=== PATIENT | female | born 2000 | race Caucasian/White ===

== ENCOUNTER 2022-08-30 20:22 | Emergency (ER) | payer OTHER, BC ==
[2022-08-30] MEDS ORDERED: Ondansetron PF 4 MG/2 ML Vial ONE (20:40)
[2022-08-30] MEDS ORDERED: Morphine 4 MG/ML VIAL ONE (20:40)
[2022-08-30] MEDS ORDERED: Boostrix 0.5 ML (Tdap) VIAL (>/=7 yrs of age) ONE (22:39)
== END 2022-08-30 22:50 | disposition home or self-care (01) ==
LOC: ERS 20:22
DX: S40.022A Contusion of left upper arm, initial encounter (principal); S80.211A Abrasion, right knee, initial encounter; V23.09XA Other motorcycle driver injured in collision with car, pick-up truck or van in nontraffic accident, initial encounter; Z23 Encounter for immunization
CPT/HCPCS: 72170; 90471; 90715; 96374; 96375; J2270; J2405

== ENCOUNTER 2022-09-14 14:20 | Outpatient (CLI) | payer BC | END 2022-09-14 14:21 | disposition home or self-care (01) | LOC: SCSMRI 14:20 | PROVIDERS: ATTEND Orthopaedic Surgery | DX: S63.502A Unspecified sprain of left wrist, initial encounter (principal); M94.8X8 Other specified disorders of cartilage, other site ==

== ENCOUNTER 2023-01-06 07:35 | Outpatient (CLI) | payer BC ==
[2023-01-06] MEDS ORDERED: Magnevist 469MG/ML 20 ML VIAL ONE (08:27)
== END 2023-01-06 07:36 | disposition home or self-care (01) ==
LOC: BICMRI 07:35
PROVIDERS: ATTEND Family Medicine
DX: M54.50 Low back pain, unspecified (principal); M51.36 Other intervertebral disc degeneration, lumbar region
CPT/HCPCS: 72158; A9579

== ENCOUNTER 2023-03-31 16:34 | Emergency (ER) | payer BC ==
[~2023-03-31 16:34] MED LIST: Iopamidol-370 76% 500 ML MDV (1 ML CHARGE) ONE
[2023-03-31] MEDS ORDERED: Morphine 4 MG/ML VIAL ONE ×2 (18:18→20:40)
[2023-03-31] MEDS ORDERED: Ondansetron PF 4 MG/2 ML Vial ONE ×2 (18:18→20:45)
[2023-03-31 18:41] LABS: #Basophils 0.1 thou/uL (0.0-0.2); #Eosinphils 0.2 thou/uL (0.0-0.7); #Monocytes 1.3 thou/uL (0.11-0.59); #Neutrophils 11.3 thou/uL (1.40-6.50); %Basophils 0.6 % (0.0-1.0); %Eosinophils 1.1 % (0.0-10.0); %Lymphocytes 17.8 % (28.0-48.0); %Monocytes 8.3 % (0.0-4.0); %Neutrophils 71.1 % (31.0-61.0); Hematocrit 44.7 % (36.0-47.0); Hemoglobin 15.3 g/dL (12.0-16.0); Mean Corpuscular HGB CONC 34.2 g/dL (32.0-36.0); Mean Corpuscular Hemoglobin 29.7 pg (25.0-35.0); Mean Corpuscular Volume 86.6 fl (78.0-98.0); Mean Platelet Volume 9.1 fL (7.4-10.4); Platelet Count 269 10x3/uL (130-400); Red Blood Cell (RBC) Count 5.16 mill/uL (4.00-5.20)
[2023-03-31 19:06] LABS: ALT (SGPT) 28 U/L (8-55); AST (SGOT) 23 U/L (5-34); Albumin 4.4 g/dL (3.5-5.0); Alkaline Phosphatase 52 U/L (40-100); Anion Gap 17 mmol/L (10-20); BUN (Urea Nitrogen) 11 mg/dL (7.0-18.7); Bilirubin, Total 0.5 mg/dL (0.2-1.2); Calc. Creatinine Clearance 0 mL/min (70-130); Calcium 10.2 mg/dL (7.8-10.44); Carbon Dioxide 24 mmol/L (22-29); Chloride 98 mmol/L (98-107); Estimated GFR 127; Globulin 3.7 g/dL (2.4-3.5); Glucose 92 mg/dL (70-105); Lipase 24 U/L (8-78); Potassium 3.9 mmol/L (3.5-5.1); Protein, Total 8.1 g/dL (6.0-8.3); Sodium 135 mmol/L (136-145)
[2023-03-31 19:09] LABS: Troponin I Less than 0.010 ng/mL (< 0.028)
[2023-03-31 20:23] LABS: Bacteria/HPF None Seen HPF (None Seen); Bilirubin Negative (Negative); Blood, Urine Negative (Negative); CAUTI Indications for Culture Alt mental st,lethar; Clarity Clear (Clear); Glucose, Urine (Dipstick) Normal (Negative); Ketone, Urine Negative (Negative); Leukocyte Negative Leu/uL (Negative); Nitrite Negative (Negative); Protein, Urine (Dipstick) Negative (Neg-Trace); RBC/HPF 0-3 HPF (0-3); Specific Gravity, Urine 1.025 (1.002-1.036); Squamous Epithelial 0-3 HPF (0-3); Urobilinogen Normal mg/dL (Less than 2); WBC/HPF 0-3 HPF (0-3); pH, Urine 5.5 (5.0-9.0)
[2023-03-31 20:26] LABS: Pregnancy Test - Urine (BHCG) Negative (Negative); Pregu Control Background? CLEAR/WHITE (CLR/WHITE); Pregu Control Bar Appear? YES (CONTROL BAR); Specific Gravity 1.025 (1.002-1.036); Urine Culture Reflex No No
[2023-03-31 21:30] LABS: Troponin I Less than 0.010 ng/mL (< 0.028)
== END 2023-03-31 22:16 | disposition home or self-care (01) ==
LOC: ERS 16:34
DX: J18.9 Pneumonia, unspecified organism (principal)
CPT/HCPCS: 36415; 71045; 71275; 80053; 81001; 81025; 83605; 83690; 84484; 85025; 85379; 93005; 96374; 96375; 96376; J2270; J2405; Q9967

== ENCOUNTER 2023-06-02 16:33 | Outpatient (CLI) | payer BC | END 2023-06-02 16:34 | disposition home or self-care (01) | LOC: BICRAD 16:33 | PROVIDERS: ATTEND Family Medicine | DX: Z87.01 Personal history of pneumonia (recurrent) (principal) | CPT/HCPCS: 71046 ==

== ENCOUNTER 2024-03-22 12:43 | Outpatient (CLI) | payer BC | END 2024-03-22 12:44 | disposition home or self-care (01) | LOC: SCSMRI 12:43 | PROVIDERS: ATTEND Specialist | DX: M51.16 Intervertebral disc disorders with radiculopathy, lumbar region (principal) | CPT/HCPCS: 72148 ==